=== PATIENT | female | born 2005 | race Caucasian/White ===

== ENCOUNTER 2024-07-14 19:19 | Emergency (ER) | payer OTHER ==
[2024-07-14 19:28] VITALS: BP 110/72; PULSE 112; RESP 18; TEMP 97.7; BMI 25.2
[2024-07-14] MEDS ORDERED: diphenhydrAMINE HCL 25 MG CAPSULE (FP) PO ONE (21:24)
[2024-07-14] MEDS ORDERED: predniSONE 20 MG TABLET (UD) ONE (21:25)
[2024-07-14] MEDS: diphenhydrAMINE HCL 50 MG CAPSULE PO ONE (21:31)
[2024-07-14] MEDS: predniSONE 20 MG TABLET (UD) PO ONE (21:31)
== END 2024-07-14 21:39 | disposition home or self-care (01) ==
LOC: JERFT 19:19
DX: R21 Rash and other nonspecific skin eruption (principal)
CPT/HCPCS: 99283-25